=== PATIENT | female | born 2000 | race Hispanic/Latino ===

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

== ENCOUNTER 2021-05-23 00:22 | Emergency (ER) | payer OTHER ==
[~2021-05-23] VITALS: Ht 149.9 cm; Wt 49.9 kg
[2021-05-23] MEDS ORDERED: DIFLUCAN100 MG PO (00:45)
[2021-05-23] MEDS ORDERED: CEFDINIR300 MG PO (00:45)
[2021-05-23] MEDS ORDERED: IBUPROFEN IB200 MG PO (00:45)
[2021-05-23 01:10] VITALS: BP 104/70
== END 2021-05-23 01:10 | disposition home or self-care (01) ==
LOC: FSED 00:55
DX: R30.0 Dysuria (principal); N39.0 Urinary tract infection, site not specified
CPT/HCPCS: 81003; 81025; 99282